=== PATIENT | female | born 1960 | race Caucasian/White ===

== ENCOUNTER → 2020-07-22 08:16 | Outpatient (CLI) | payer OTHER, SELFPAY ==
--- NOTE | ~2020-07-22 | MR_ITS ---
EXAMINATION: MR ankle RT wo con DATE: 07/22/2020 09:06 INDICATION: Right Achilles tendinitis. TECHNIQUE: Magnetic resonance imaging (MRI) of the right ankle was performed without intravenous cont rast. Sequences included sagittal, coronal, and axial proton-density weighted fast spin echo without and with fat saturation. COMPARISON: None. FINDINGS: Medial ankle ligaments: Prominent heterotopic ossification along the talar side of the deep deltoid ligament consistent with sequela of prior tear. Similar there is thickening of the anterior superficial deltoid ligament addit ional heterotopic ossification consistent with sequela chronic sprain. The spring ligament complex is normal. Lateral ankle ligaments: The anterior inferior tibiofibular ligaments is normal. Chronic partial tears of the attenuated anter ior talofibular ligament, the calcaneofibular ligament which is mildly thickened at its calcaneal ins ertion of the posterior talofibular and posterior inferior tibiofibular ligaments which are thickened with small amount of heterotopic ossification along the fibular side of the ligaments and cystic chip nges at the fibula underlying the footplates of the ligaments. Tendons: Moderate insertional tendinosis at the distal Achilles tendon discrete tear but with mild surrounding peritendinitis. Moderate tendinopathy and longitudinal split tearing of the peroneus brevis tendon c entered at the level of the retromalleolar groove and distal tip of the lateral malleolus. Mild peron eus longus tendinopathy with longitudinal split tear extending a short distance distal to the retroar eolar trochlear eminence. The tibialis anterior and extensor hallucis longus and extensor digitorum l ongus tendons are normal. The tibialis posterior, flexor digitorum longus and flexor hallucis longus tendons are normal. Plantar fascia: Small plantar calcaneal spur with mild thickening and mild increased signal of the proximal plantar a poneurosis consistent with mild chronic enthesopathy. No surrounding edema to suggest acute plantar f asciitis. Bones/other: Polyarticular osteoarthritis. This includes mild nonuniform joint space narrowing at the tibiotalar j oint, mild to moderate joint space narrowing at the subtalar joint with subarticular edema along the course of the talar articular surfaces at the anterior and posterior facets. Additional moderate oste oarthritis with subarticular edema at the second and third tarsal metatarsal joints with mild osteoar thritis at several of the remaining joints in the midfoot. No fracture or pathologic marrow replacing process. A couple small low signal intensity bone islands in the cuboid and anterior process of the calcaneus. Fluid: Physiologic amount fluid in the joint space. Small amount of fluid at the retrocalcaneal bursa consis tent with mild bursitis. Mild subcutaneous edema about the distal calf, ankle and over the dorsum of the forefoot. IMPRESSION: 1. Moderate distal Achilles tendinosis with associated mild peritendinitis and retrocalcaneal bursiti s. 2. Tendinopathy and longitudinal split tears of the peroneus brevis longus and peroneus brevis tendon s. 3. Scarring and heterotopic ossification of the stabilizing ligaments at the medial and lateral ankle consistent with sequela of chronic sprains. 4. 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 Reviewed, dictated and finalized at location A. OPAEDIC NURSE IMPRESSION: 1. Moderate distal Achilles tendinosis with associated mild peritendinitis and retrocalcaneal bursitis. 2. Tendinopathy and longitudinal split tears of the peroneus brevis longus and peroneus brevis tendons. 3. Scarring and heterotopic ossification of the stabilizing ligame
== END ==
PROVIDERS: PCP Family Medicine; Visit Provider Podiatrist Foot & Ankle Surgery
DX: M76.61 Achilles tendinitis, right leg (principal); M19.071 Primary osteoarthritis, right ankle and foot
CPT/HCPCS: 73721

== ENCOUNTER 2025-03-24 10:03 | Outpatient (CLI) | payer MEDICARE, SELFPAY ==
--- OUTSIDE RECORDS SUMMARY | 2025-03-24 10:14 | XMS_ITS | Clinical Summary ---
Author Organization [facility] Address [address] [place] [address] Care Team Providers Care Oil Program Compliance Specialist Name Role Phone Unavailable Primary Care Provider Unavailabl e Social History Tobacco Use Types Packs/Day Years Used Date Smoking Tobacco: Never Assessed Comments Unknown Sex and Gender Information Value Date Recorded Sex Assigned at Not on file Legal Sex Female 12:57 PM CDT Gender Identity Not on file Sexual Orientation Not on file Plan of Treatment Health Maintenance Due Date Last Done Comments Colorectal Cancer Screening Colonoscopy (10 Years) 1959 Hepatitis C 1977 DTaP, Tdap and Td Vaccines ( 1 - Tdap) 1978 Mammogram Screening 1999 Pneumococcal Vaccine: 50+ Ye ars (1 of 1 - PCV) 2009 Zoster Vaccines (1 of 2) 2009 COVID-19 Vaccine ( - 2023-2 5 season) 2024 Dexa Scan (General) 2024 PHQ-2 (Physician Beattie) 09/10/2024 RSV Immunization or 60+ Years (1 - 1-dose 75+ series) 2034 Meningococcal B Vaccine Aged Out No l onger eligible based on patient's age to complete this topic Meningococcal Vaccine Aged Out No trey chiara eligible based on patient's age to complete this topic RSV Immunizations Under 20 Months Aged Out No longer eligible based on patient's age to complete this topic Insurance [employer]
--- OUTSIDE RECORDS SUMMARY | 2025-03-24 10:14 | XMS_ITS | Clinical Summary ---
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
--- OUTSIDE RECORDS SUMMARY | 2025-03-24 10:14 | XMS_ITS | Referral Summary ---
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
--- OUTSIDE RECORDS SUMMARY | 2025-03-24 10:14 | XMS_ITS | Clinical Summary ---
Author Organization [facility] Address [address] [place] [address] Care Team Providers Care Electronic Lab Technician Name Role Phone Víctor Garcia MD Primary Care Provider Source Comments [facility],non-owned Affiliates and Associated Physician Practices is amultiple site organization consisting of ambulatory clinics and hospital sitesin [place], [place], [place] and [place]. This disclosure is being madepursuant to the Care Everywhere program and may not contain all information available regarding this patient. 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 Gender Identity Not on file Sexual Orientation Not on file Plan of Treatment Health Maintenance Due Date Last Done Comments BONE DENSITY TESTING 1959 COLOGUARD (AGES 45-75) - COL ON CA SCREENING 1959 COLON MONITORING 1959 COLONOSCOPY - COLON CA SCREENING 1959 CT COLONOGRAPHY - COLON CA SCREENING 1959 Colorectal Cancer Screening 1959 FIT - COLON CA SCREENING 1959 FLEX SIG - COLON CA SCREENING 1959 LIPID TESTING 1959 MAMMOGRAM 1959 HIV SCREENING 1974 HEPATITIS C SCREENING 08/08/1977 DTAP/TDAP/TD VACCINES (1 - Tdap) 1978 PNEUMOCOCCAL VACCINE 50+ (1 of 1 - PCV) 2009 ZOSTER VACCINE (1 of 2) 2009 COVID-19 VACCINE (1 - 2023-2 5 season) 2024 DEPRESSION SCREENING 09/10/2024 INFLUENZA VACCINE (#1) 2025 Respiratory Syncytial Virus (RSV) Vaccine Pt: or over 60 yrs (1 - 1-dose 75+ series) 2034 HEPATITIS B VACCINE Aged Out No longe r eligible based on patient's age to complete this topic HIB VACCINE Aged Out No longer eligi ble based on patient's age to complete this topic HPV VACCINE Aged Out No longer eligi ble based on patient's age to complete this topic MENINGOCOCCAL (Group B) VACC INE SHARED DECISION-MAKING Aged Out No longer eligibl e based on patient's age to complete this topic MENINGOCOCCAL GROUPS A/C/Y/W VACCINE Aged Out No longer eligible b ased on patient's age to complete this topic Care Teams Electronic Lab Technician Relationship Specialty Start Date End Date Víctor Garcia MD [address] [address] PCP - General 03/24/10
--- OUTSIDE RECORDS SUMMARY | 2025-03-24 10:14 | XMS_ITS | Data Portability ---
Author Organization [facility] [employer], Main Office Address [address] [place] [address] Assessment No assessment recorded. Plan of Treatment Reminders Order Date Submit Date Provider Last Modified By Organization Details Last Modified Time Details Appointments None recorded. Lab hemoglobin A1C, fingerstick 2024 025 [facility], [address] [place] [address], [address], 5 14:50:12 magnesium, serum or plasma 2023 024 [email or web address] (Lab), [address] [place], [address], 4 08:35:35 ferritin, serum or plasma 2023 024 [email or web address] (Lab), [address] [place], [address], 4 08:35:35 glycohemogl obin, total, blood 2023 024 [email or web address] (Lab), [address] [place], [address], 4 08:35:35 lipid panel, serum 2022 023 [facility] (Lab), [address] [place], [address], 3 19:31:01 CMP, serum or plasma 2022 023 [facility] (Lab), [address] [place], [address], 3 19:31:06 glycohemogl obin, total, blood 2022 023 [facility] (Lab), [address] [place], [address], 3 19:37:06 TSH, serum or plasma 2022 023 [facility] (Lab), [address] [place], [address], 3 19:59:17 Referral neurologist referral - Please call patient to schedule an appointment . Thank you. 2023 024 [email or web address] Balbir Cordero MD, [address], [place], [address], 4 09:14:43 Procedures None recorded. Surgeries None recorded. Imaging MAMMO, screening, digital, bilateral [address], [address] [place] [address] , [facility] [address], [place], [address], 5 16:07:57 DEXA, axial skeleton 2024 [address] [facility], [address] [place] [address] [address], [place], [address], 5 16:07:57 XR, hip, unilateral, 2 or 3 view [email or web address] [place] [address], [facility] [place] , [place], [address], 4 08:59:49 DEXA - *Please call pt to schedule* 2023 [email or web address] [place] [address] (Imaging), [address] [place] [address] [address], [place], [address], 4 08:56:49 US, doppler, venous - bilateral, upper and lower, looking for blockage *Please call pt to schedule* 2023 024 [email or web address] [address] [facility], [address], [place], [address], 4 08:56:50 US, doppler, arterial - looking for atheroscler osis, bilateral *Please call pt to schedule* 2023 024 [email or web address] 256 [facility], [address], [place], [address], 4 08:56:50 MAMMO, screening, bilateral 2022 023 [email or web address] 256 [facility], [address] [place] [address], [place], [address], 3 09:03:37 Medication Orders ropinirole 1 mg tablet 2024 025 [facility]arm[facility] #3259, [address] [place], [address], 5 14:14:18 ropinirole 0.25 mg tablet 2023 024 [facility]arm[facility] #3259, [address] [place], [address], 4 12:25:15 zolpidem 10 mg tablet 2023 024 [facility] #3259, [address] [place], [address], 4 12:16:14 ropinirole 0.25 mg tablet 2023 024 [facility]Pharmacy #3259, [address] [place], [address], 4 12:47:08 fluoxetine 20 mg capsule 2023 024 IVAN [facility]/Pharmacy #3259, [address] [place], [address], 4 12:40:16 terbinafine HCl 250 mg tablet 2022 023 [email or web address] [facility]/Pharmacy #3259, [address] [place], [address], 4 12:24:43 fluoxetine 40 mg capsule 2022 023 [email or web address] [facility]arm[facility] #3259, [address] [place], [address], 5 13:48:07 Patient TargetsNo targets recorded. Patient Instructions Encounter Date Encounter Id Patient Instructions Last Modified By Organization Details Last Modified Time 12/10/2023 [id number] wear compression stockings [email or web address] Not available 12/10/2023 14:18:53 07/16/2024 [id number] She said she rachel l consider going to ortho for her hip after the holidays . I encouraged her to get the x-ray of hip rohit , not to wait . [email or web address] Not available 08/10/2024 16:09:53 10/29/2024 [id number] dementia rating scale-2* IVAN Not available 10/29/2024 14:55:30 multi-dimensiona l health assessment questionnaire* IVAN Not available 10/29/2024 14:55:22 advance directiv es: care instructions [email or web address] Not available 10/29/2024 14:25:53 [place] Advance Directives [email or web address] Not available 10/29/2024 14:25:53 advance care planning: care instructions [email or web address] Not available 10/29/2024 14:25:53 care plan* IVAN Not available 10/29 14:55:13 Personalized Hea lth Plan and Screening Recommendations Advance Directives - Do you have one? Advance Directives - Do we have your advance directive on file in your health record? Primary Prevention/Interven tion (prevents or decreases the chance of common diseases from occurring) Smoking Risk: Alcohol Misuse Screening: Weight: Physical activity: Nutrition: Fall Risk (screened today): Vaccines Pneumococcal: Influenza: Chronic Disease Risks Stroke: Active diagnosis, Continue current treatment plan Heart Attack: Active diagnosis, Continue current treatment plan Clogging of the Arteries: Active diagnosis, Continue current treatment plan Diabetes: Active diagnosis, Continue current treatment plan Secondary Prevention/Interven tion (detects treatable diseases before they may cause symptoms, disability, or ) Breast Cancer Screening with mammogram: Cervical/Uterine/Ov vy Cancer Screening: Osteoporosis Screening: Date Screening Last Performed: Colon Cancer Screening: Date Screening Last Performed: Eye Disease Screening: Your next exam in: Dementia Risk: Depression Screening: Active diagnosis, Continue current treatment plan Not available 10/29/2024 13:34:10 buy otc Black Cohosh and soy tablets . google dose [email or web address] Not available 11/01/2024 11:31:37 Reason for Referral Neurologist Referral for Manuelito miller Please call patient to schedule an appointment. Thank you. Referring Physician: Mason Tejeda, Family Medicine, Encounter Date: 12/10/2023 Results Created Date Observation Date Name Description Value Unit Range Abnormal Flag Note LastModifiedBy Organization Detail LastModifiedTime 04/06/2004/06/2023 LIPID PANEL cholesterol 222 mg/dL 140-19 9 high NIH ADONIS NSUS RECOM MENDA TION FOR MARGARETH STERO L: ADULT CHILD LOW RISK: <200 <170 BORDE RLINE : <200- 239 ----- HIGH RISK: >240 >200 Not Available [facility] (Lab) [address] [place], [address], 04/06/2023 19:31:01 04/06/2004/06/2023 LIPID PANEL triglyceride s 101 mg/dL 0-150 NIH ADONIS NSUS REPOR T RECOM MENDA TION FOR TRIGL YCERI MICAELA: ADULT CHILD LOW RISK: <150 ----- BODER LINE: 150-1 99 ----- HIGH RISK: >200 ----- Not Available [facility] (Lab) [address] [place], [address], 04/06/2023 19:31:01 04/06/20 23 04/06/2023 LIPID PANEL HDL cholesterol 61 mg/dL 40- Not Available [facility] (Lab) [address] [place], [address], 04/06/2023 19:31:01 04/06/20 23 04/06/2023 LIPID PANEL LDL cholesterol, calculated 141 mg/dL 0-130 high NIH ADONIS NSUS REPOR T RECOM MENDA TIONS FOR LDL: ADULT CHILD LOW RISK <130 <110 (OPTI MAL LDL) <100 ----- BORDE RLINE : 130-1 59 ----- HIGH RISK: >160 >130 A TRIGL YCERI DE RESUL T >400 INVAL IDATE S THE CALCU LATIO N FOR LDL FRACT IONAT ION - THE LDL RESUL T WILL NOT BE REPOR MICHAEL. Not Available [facility] (Lab) [address] [place], [address], 04/06/2023 19:31:01 04/06/20 23 04/06/2023 COMP MET PANEL /LIVE R sodium 140 mmol/ L 137-14 5 Not Available [facility] (Lab) [address] [place], [address], 04/06/2023 19:31:06 04/06/2004/06/2023 COMP MET PANEL /LIVE R potassium 4.0 mmol/ L 3.5-5. 1 Not Available [facility] (Lab) [address] [place], [address], 04/06/2023 19:31:06 04/06/20 23 04/06/2023 COMP MET PANEL /LIVE R chloride 102 mmol/ L 98-107 Not Available [facility] (Lab) [address] [place], [address], 04/06/2023 19:31:06 04/06/20 23 04/06/2023 COMP MET PANEL /LIVE R carbon dioxide 29 mmol/ L 22-30 Not Available [facility] (Lab) [address] [place], [address], 04/06/2023 19:31:06 04/06/20 23 04/06/2023 COMP MET PANEL /LIVE R anion gap 13.0 mmol/ L 14-22 low Not Available [facility] (Lab) [address] [place], [address], 04/06/2023 19:31:06 04/06/20 23 04/06/2023 COMP MET PANEL /LIVE R glucose 115 mg/dL 70-99 high Not Available [facility] (Lab) [address] [place], [address], 04/06/2023 19:31:06 04/06/20 23 04/06/2023 COMP MET PANEL /LIVE R BUN 21 mg/dL 8-19 high Not Available [facility] (Lab) [address] [place], [address], 04/06/2023 19:31:06 04/06/20 23 04/06/2023 COMP MET PANEL /LIVE R creatinine 0.95 mg/dL 0.66-1 .25 Not Available [facility] (Lab) [address] [place], [address], 04/06/2023 19:31:06 04/06/20 23 04/06/2023 COMP MET PANEL /LIVE R GFR 59 Refer ence Range : Derry ge GFR Healt hy Adult : >60 mL/mi n/1.7 3 m2 Chron ic Kidne y Disea se: 15-60 mL/mi n/1.7 3 m2 Kidne y Failu re: <15/m L/min /1.73 m2 www.n iddk. nih.g ov The MDRD study equat ion has not been valid ated in child jessica <18 years of age; pregn ant women ; the elder ly >85 years of age; or in some racia l or ethni c subgr oups, such as Hispa nics. Outsi de the valid ated santana eters , estim ated GFR is less accur ate, requi ring clini veronica judgm ent on a case- by-ca se basis . Clini veronica inter preta tion for other races and ages must be made by the clini arianna. The MDRD study equat ion has not been valid ated for the evalu ation of serum creat inine relat ed to nutri lorne l statu s or medic ation usage . For perso ns <18 years of age, a pedia tric GFR calcu lator is avail able on the [facility] websi te: https ://ww w.kid ayesha.o rg/pr ofess ional s/kdo qi/gf r_cal culat or Not Available [facility] (Lab) [address] [place], [address], 04/06/2023 19:31:06 04/06/20 23 04/06/2023 COMP MET PANEL /LIVE R alkaline phosphatase 60 U/L 38-126 Not Available [facility] (Lab) [address] [place], [address], 04/06/2023 19:31:06 04/06/20 23 04/06/2023 COMP MET PANEL /LIVE R alanine aminotransfe rase 23 U/L 0-35 Not Available [facility] (Lab) [address] [place], [address], 04/06/2023 19:31:06 04/06/20 23 04/06/2023 COMP MET PANEL /LIVE R aspartate aminotransfe rase 26 U/L 15-37 Not Available [facility] (Lab) [address] [place], [address], 04/06/2023 19:31:06 04/06/20 23 04/06/2023 COMP MET PANEL /LIVE R bilirubin, total 0.30 mg/dL 0.20-1 .30 Not Available [facility] (Lab) [address] [facility] [place], [address], 04/06/2023 19:31:06 04/06/20 23 04/06/2023 COMP MET PANEL /LIVE R bilirubin, conjugated (direct) 0.00 mg/dL 0.00-0 .30 Not Available [facility] (Lab) [address] [place], [address], 04/06/2023 19:31:06 04/06/20 23 04/06/2023 COMP MET PANEL /LIVE R biliurubin,u ncong. (indirect) 0.20 mg/dL 0.00-1 .1 Not Available [facility] (Lab) [address] [place], [address], 04/06/2023 19:31:06 04/06/20 23 04/06/2023 COMP MET PANEL /LIVE R calcium 9.5 mg/dL 8.4-10 .2 Not Available [facility] (Lab) [address] [place], [address], 04/06/2023 19:31:06 04/06/20 23 04/06/2023 COMP MET PANEL /LIVE R total protein 7.2 g/dL 6.3-8. 2 Not Available [facility] (Lab) [address] [place], [address], 04/06/2023 19:31:06 04/06/20 23 04/06/2023 COMP MET PANEL /LIVE R albumin 4.2 g/dL 3.0-4. 4 Not Available [facility] (Lab) [address] [place], [address], 04/06/2023 19:31:06 04/06/20 23 04/06/2023 COMP MET PANEL /LIVE R globulin 3.0 g/dL 2.6-4. 2 Not Available [facility] (Lab) [address] [place], [address], 04/06/2023 19:31:06 04/06/20 23 04/06/2023 COMP MET PANEL /LIVE R A/G ratio 1.4 ratio 1.0-2. 0 Not Available [facility] (Lab) [address] [place], [address], 04/06/2023 19:31:06 04/06/20 23 04/06/2023 HEMOG LOBIN A1C HA1C 6.2 % 4.0-6. 0 high Diabe devon Chance david Crite jason: <5.7% Consi stent with absen ce of diabe devon 5.7-6 .4% Consi stent with incre ased risk for diabe devon (pred iabet es) >OR=6 .5% Consi stent with diabe devon REFER ENCE: Diabe devon Care 2016, 39(Lal ppl.1 ):s13 -s22 Not Available [facility] (Lab) [address] [place], [address], 04/06/2023 19:37:06 04/06/20 23 04/06/2023 TSH W/REF CELSO FT4 TSH with reflex free T4 0.939 uIU/m L 0.465- 4.680 Not Available [facility] (Lab) [address] [place], [address], 04/06/2023 19:59:17 10/29/19 25 10/29/2024 hemog lobin A1C, finge rstic k HgbA1C 6.4 Not Available [facility]_[address], [address], 10/29/2024 14:09:33 06/11/20 23 MAMMO , chance david, digit al, bilat eral [facility] [address] [facility] [place] [id number] Patien t Name: MIGUEL CORBETT Sameer ion #: [id number] Sex: F : 1959 6 Dictat ed By: Leonor Randall Attend ing Physic bert: ELKHAT IB, RUNDA Orderi ng Physic bert: ELKHAT IB, RUNDA Exam Date: 2022 09:56 AM Exam Name: MG VERA L NILTON BILAT SCREEN Admitt ing Diagno sis(es ): CLINIC AL HISTOR Y: Screen ing COMPAR ESTEBAN STUDY: None TECHNI QUE: Using a full field digita l 2D mammog patti unit CC and MLO views of both breast s are perfor med. FINDIN GS: BREAST COMPOS ITION: There are scatte red areas of fibrog landul ar densit y in the bilate ral breast s. No suspic ious masses , stephanie ectura l distor tion, asymme tries or suspic ious calcif icatio ns in both breast s. IMPRES MACI: No eviden ce of malign christina. Recomm end annual mammog paige. BIRADS : 1 - Negati ve Electr onical ly Signed by: Leonor Randall at 2022 10:59: 05 AM Page 1 [facility] (Imaging) [address] [place], [address], 06/11/2023 13:55:53 06/11/20 23 06/11/2023 MAMMO , scree joann, bilat eral No observ ation record ed. [email or web address] [facility] [address] [place], [address], 06/11/2023 13:55:53 02/27/20 24 02/07/2024 US, doppl er, arter ial No observ ation record ed. [email or web address] [facility] [address], [place], [address], 02/28/2024 08:27:51 Result Notes Documentation Provider Name and Address Organization Details Recorded Time Mammo, Screening, Digital, Bilateral : [facility] [address] [place] [address] Patient Name: MIGUEL CORBETT [facility]: F [facility] 1960 [id number] Dictated By: Leonor Randall Attending Physician: YURY RESTREPO Ordering Physician: YURY RESTREPO Exam Date: 06/11/2023 09:56 AM Exam Name: DIGITAL NILTON BILAT SCREEN Admitting Diagnosis(es): CLINICAL HISTORY: Screening COMPARISON STUDY: None TECHNIQUE: Using a full field digital 2D mammography unit CC and MLO views of both breasts are performed. FINDINGS: BREAST COMPOSITION: There are scattered areas of fibroglandular density in the bilateral breasts. No suspicious masses, architectural distortion, asymmetries or suspicious calcifications in both breasts. IMPRESSION: No evidence of malignancy. Recommend annual mammogram. BIRADS: 1 - Negative Page 1 Suze Sanders RN [facility], [place] - [facility] [employer] 06/11/2023 13:55:53 Problems Name Problem SNOMED Code Status Onset Date Resolution Date Notes Provider Name and Address Organization Details Recorded Time Pain of bilateral hands 904794668582 06950 Active 2021 Not Available [employer] 3 23:49:00 Anti-nucle ar factor detected 991031618 Active 2021 Not Available [facility] 3 23:49:00 Fibromyalg ia 930365676 Active 2020 Not Available [employer] 3 23:49:01 Glaucoma 94469389 Active 2020 Not Available [facility] 3 23:49:01 Depressive disorder 97023313 Active 2020 Not Available [facility] 3 23:49:01 Pain of multiple joints 81567480 Active 2021 Not Available [facility] 3 23:49:01 Hypertensi ve disorder 83966354 Active 2020 Not Available [facility] 3 23:49:01 Percutaneo us division of Achilles tendon Active 2020 Not Available [facility] 3 23:49:01 Diabetes mellitus 83675098 Active 2020 Not Available [facility] 3 23:49:01 Thyroiditi s 80160805 Active 2020 Not Available [facility] 3 23:49:01 Hypothyroi dism 75312875 Active 2022 Not Available [facility] 3 23:49:01 Type 2 diabetes mellitus without complicati on 286886882 Active 2022 Not Available [facility] 3 23:49:01 Onychomyco sis of toenails 301787338 Active 2022 Not Available [facility] 3 23:49:01 Dizzy spells 453001677 Active 2023 VANDA Estevez [address], [place], [address] , [employer] [facility] [employer] 4 14:22:41 Screening for osteoporos is Active 2023 VANDA Estevez [address], [address], [place], [address] , [employer] 4 14:26:42 Aphthous ulcer of mouth 302142338 Active 2023 tongue VANDA Estevez [address], [place], [address] , [employer] [facility] [employer] 4 21:19:49 Restless legs 46334196 Active 2023 VANDA Estevez [address], [place], [address] , [employer] 4 12:45:53 Adult health examinatio n Active 2023 VANDA Estevez [address], [place], [address] , [employer] [facility] [employer] 4 11:29:53 Hyperlipid emia 14544141 Active 2023 Suze Sanders RN null, [facility] [employer] [facility] 4 16:12:03 Fatigue 58038617 Active 2023 NICOLE Davis, [place] [email or web address] [facility] [employer] 4 16:13:57 Pain of left hip joint 624253376396 100 Active 2023 VANDA Estevez [address], [address], [place], [address] , [employer] 4 12:21:11 Wheezing 79252270 Active 2024 VANDA Estevez [address], [address], [place], [address] , [employer] 5 10:15:54 Screening mammograph y Active 2024 VANDA Estevez [address], [address], [place], [address] , [employer] 5 14:05:45 Osteoporos is 89077788 Active 2024 VANDA Estevez [address], [address], [place], [address] , [employer] 5 14:21:11 Pain of right knee region 162073830918 105 Active 2024 NICOLE Davis, [employer] 5 15:31:37 Problem Notes None recorded. Procedures Surgical History Date Name Laterality Status Provider Name and Address Organization Details Recorded Time 10/29/19 Medicare Wellness CPT Code, Initial completed Suze Sanders RN [facility] [employer] 10/29/2024 13:34:10 Cataract Surgery completed Not Available [facility] 11/08/2022 00:41:25 Cholecystectomy completed Not Available [facility] 11/08/2022 00:41:25 Tonsillectomy completed Not Available [facility] 11/08/2022 00:41:25 Imaging Results None recorded. Procedure Notes None recorded. Medical Equipment None Reported. Allergies Allergen ID Allergen Name Allergen Category Reaction Reaction Severity Criticality Documentation Date Start Date Code Code System Note Provider Name and Address Organization Details Recorded Time 05375 Cymbalta medicatio n other Not available low 07/16/2024 44643 4 RxNorm NICOLE Crawford, [place] [email or web address] [facility] [employer] [facility] 12:04:16 Medications Name Sig Start Date Stop Date Status Note LastModified by Organization Details LastModified Time Prescript ion - Prior Authoriza tion Request active Not Available Not Available Not Available fluoxetin e 40 mg capsule TAKE 1 CAPSULE BY MOUTH EVERY DAY 10/29 completed Not Available Not Available Not Available latanopro st 0.005 % eye drops USE 1 DROP IN EACH EYE AT BEDTIME active Not Available Not Available No t Available ropinirol e 1 mg tablet TAKE 1 TABLET BY MOUTH EVERY DAY AT BEDTIME FOR 30 DAYS active Not Available Not Available No t Available atorvasta tin 10 mg tablet TAKE 1 TABLET BY MOUTH EVERY DAY 03/21 completed weak legs Not Available Not Available Not Available prednison e 20 mg tablet Take 2 tabs PO twice daily for 2 days; 1 tab PO twice daily for 5 days; 1/2 tab PO twice daily for 2 days; 1/2 tab PO once for 1 day. TAKE 2ND DOSE EVERYDAY AT NOON-10 DAY COURSE 10/29 completed Not Available Not Available Not Available tramadol 50 mg tablet TAKE 1-2 TABLET BY MOUTH EVERY 6 HOURS NEEDED FOR PAIN. active Not Available Not Available No t Available levothyro xine 25 mcg tablet TAKE 1 TABLET BY MOUTH DAILY ON EMPTY STOMACH, WAIT 30-60 MINS BEFORE EATING OR DRINKING active Not Available Not Available No t Available oxycodone -acetamin ophen 5 mg-325 mg tablet TAKE 1 TABLET BY MOUTH EVERY 4 TO 6 HOURS NEEDED FOR PAIN 04/04 completed Not Available Not Available Not Available terbinafi ne HCl 250 mg tablet TAKE 1 TABLET BY MOUTH EVERY DAY 04/07 completed Not Available Not Available Not Available amitripty line 25 mg tablet TAKE 1 TABLET BY MOUTH EVERYDAY AT BEDTIME 04/03 completed Not Available Not Available Not Available ropinirol e 0.25 mg tablet TAKE 2 TABLETS BY MOUTH EVERY DAY AT BEDTIME FOR 30 DAYS active Not Available Not Available No t Available Kenalog 10 mg/mL suspensio n for injection In office injectio n administ ered by the provider 11/01 completed ND: [id number] 4-20 Not Available Not Available Not Available cephalexi n 500 mg capsule TAKE 1 CAPSULE BY MOUTH THREE TIMES A DAY 11/11 completed Not Available Not Available Not Available ferrous sulfate 325 mg (65 mg iron) tablet TAKE 1 TABLET BY MOUTH IN THE MORNING 07/16 completed Not Available Not Available Not Available fluoxetin e 20 mg tablet TAKE 2 TABLETS BY MOUTH ONCE DAILY IN THE MORNING 11/01 completed Not Available Not Available Not Available diclofena c sodium 75 mg tablet,de layed release TAKE 1 TABLET BY MOUTH TWICE DAILY NEEDED FOR PAIN 11/11 completed Not Available Not Available Not Available lisinopri l 10 mg-hydroc hlorothia zide 12.5 mg tablet TAKE 1 TABLET BY MOUTH EVERY DAY active Not Available Not Available No t Available zolpidem 10 mg tablet TAKE 1 TABLET BY MOUTH EVERYDAY AT BEDTIME active Not Available Not Available No t Available albuterol sulfate HFA 90 mcg/actua tion aerosol inhaler INHALE 2 PUFFS EVERY 8 HOURS BY INHALATI ON ROUTE NEEDED FOR 10 DAYS. active Not Available Not Available No t Available timolol maleate 0.5 % eye drops INSTILL 1 DROP INTO EACH EYE TWICE DAILY DIRECTED active Not Available Not Available No t Available fluoxetin e 20 mg capsule TAKE 1 CAPSULE BY MOUTH EVERY DAY active Not Available Not Available No t Available gentamici n 0.1 % topical ointment APPLY ON THE SKIN DAILY TO THE AFFECTED TOE 11/11 completed Not Available Not Available Not Available dorzolami de 2 % eye drops INSTILL ONE DROP INTO BOTH EYES TWICE A DAAY active Not Available Not Available No t Available enoxapari n 40 mg/0.4 mL subcutane ous syringe 04/04 completed Not Available Not Available Not Available ezetimibe 10 mg tablet TAKE 1 TABLET BY MOUTH EVERY DAY IN THE MORNING active Not Available Not Available No t Available pregabali n 25 mg capsule TAKE 1 CAPSULE BY MOUTH EVERY MORNING 04/07 completed Not Available Not Available Not Available pregabali n 50 mg capsule ONE TABLET BY MOUTH TWICE A DAY 04/07 completed Not Available Not Available Not Available pregabali n 75 mg capsule TAKE 1 CAPSULE BY MOUTH TWICE A DAY 11/01 completed Not Available Not Available Not Available Januvia 50 mg tablet Take 1 tablet every day by oral route in the morning for 90 days. active has been using januvia 100mg samples Not Available Not Available Not Available Tradjenta 5 mg tablet active Not Available Not Available Not Available ropivacai ne (PF) 5 mg/mL (0.5 %) injection solution Take 1 mg by injectio n route. 11/01 completed Not Available Not Available Not Available Rhopressa 0.02 % eye drops INSTILL ONE DROP IN EACH EYE EVERY NIGHT 04/07 completed Not Available Not Available Not Available Quviviq 50 mg tablet TAKE 1 TABLET BY MOUTH EVERYDAY AT BEDTIME 11/01 completed Not Available Not Available Not Available Zituvio 50 mg tablet 1 tab po daily 10/29 completed Not Available Not Available Not Available Vitals Date Recorded Body height Body mass index (BMI) Body weight Body temperature Oxygen saturation Oxygen saturation in Arterial blood by Pulse oximetry Heart rate Systolic And Diastolic Provider Name and Address Organization Details Last Updated DateTime 5 165.1 cm 42 kg/m2 320276 g 97.2 [degF] 97 % 97 % 55 /min 122/92 mm[Hg] Suze Sanders RN [facility] [employer] [facility] 5 13:47:37 Date Recorded Body height Body mass index (BMI) Body weight Body temperature Heart rate Oxygen saturation Oxygen saturation in Arterial blood by Pulse oximetry Respiratory rate Systolic And Diastolic Provider Name and Address Organization Details Last Updated DateTime 4 165.1 cm 43.4 kg/m2 626458. 61 g 97.2 [degF] 64 /min 97 % 97 % 16 /min 126/84 mm[Hg] Marjan Cook RN [facility] [employer] [facility] 4 14:09:03 Date Recorded Body height Body mass index (BMI) Body weight Body temperature Heart rate Oxygen saturation Oxygen saturation in Arterial blood by Pulse oximetry Systolic And Diastolic Provider Name and Address Organization Details Last Updated DateTime 3 165.1 cm 44.4 kg/m2 383514. 16 g 96.6 [degF] 98 /min 98 % 98 % 138/100 mm[Hg] SHAR Mills [facility] [employer] [facility] 3 11:14:33 Date Recorded Body height Body mass index (BMI) Body weight Body temperature Heart rate Respiratory rate Oxygen saturation Oxygen saturation in Arterial blood by Pulse oximetry Systolic And Diastolic Provider Name and Address Organization Details Last Updated DateTime 4 165.1 cm 44.1 kg/m2 375343. 98 g 96.9 [degF] 59 /min 16 /min 97 % 97 % 146/90 mm[Hg] Regine Yepez RN [facility] [employer] [facility] 4 12:29:00 Date Recorded Body height Body mass index (BMI) Body weight Body temperature Heart rate Oxygen saturation Oxygen saturation in Arterial blood by Pulse oximetry Systolic And Diastolic Provider Name and Address Organization Details Last Updated DateTime 4 165.1 cm 44.4 kg/m2 724944. 16 g 97.5 [degF] 60 /min 97 % 97 % 134/80 mm[Hg] Regine Yepez RN [facility] [employer] [facility] 4 12:09:49 Social History Question Answer Notes LastModified by [employer] Details LastModified Time Tobacco Smoking Status Former Smoker Not Available [facility] 11/08/2022 00:41:01 In The 14 Days Before Symptom Onset, Have You Had Close Contact With A Laboratory-confirm ed COVID-19 While That Case Was Ill? No [id number] Information not available 11/08/2022 In The 14 Days Before Symptom Onset, Have You Had Close Contact With A Person Who Is Under Investigation For COVID-19 While That Person Was Ill? No [id number] Information not available 11/08/2022 What Was The Date Of Your Most Recent Tobacco Screening? 04/04/2022 [id number] Information not available 11/08/2022 At What Age Did You Start Smoking Tobacco? 18 [id number] Information not available 11/08/2022 How Much Tobacco Do You Smoke? 1 PPD [id number] Information not available 11/08/2022 How Many Years Have You Smoked Tobacco? 12 Quite 1990 [id number] Information not available 11/08/2022 Sex: Unknown Functional Status Question Answer Note LastModified by [employer] Details LastModified Time What is your level of alcohol consumption? Occasional [id number] Information not available 11/08/2022 Mental Status None recorded. Family History Relationship Description Onset Age of this Age Resolved Age Notes LastModified by Organization Details LastModified Time Father Diabetes mellitus [id number] Not available 11/08/2022 00:41:30 Father Hypertensive disorder MIGRATION.378 [id number] Not available 11/08/2022 00:41:30 Father Family history of stroke MIGRATION.801 [id number] Not available 11/08/2022 00:41:30 Paternal Grandfather Diabetes mellitus MIGRATION.900 [id number] Not available 11/08/2022 00:41:31 Paternal Grandfather Family history of malignant neoplasm [id number].772 [id number] Not available 11/08/2022 00:41:31 Mother Polycystic ovary syndrome MIGRATION.609 [id number] Not available 11/08/2022 00:41:31 Mother Glaucoma MIGRATION.976 [id number] Not available 11/08/2022 00:41:31 Mother Kidney disease MIGRATION.800 [id number] Not available 11/08/2022 00:41:31 Maternal Grandmother Glaucoma MIGRATION.277 [id number] Not available 11/08/2022 00:41:31 Paternal Aunt Family history of malignant neoplasm MIGRATION.193 [id number] Not available 11/08/2022 00:41:31 Paternal Uncle Family history of malignant neoplasm MIGRATION.474 [id number] Not available 11/08/2022 00:41:31 Sister Bipolar disorder MIGRATION.433 [id number] Not available 11/08/2022 00:41:31 Medical History Condition Response BLINDNESS N RHEUMATIC FEVER N KIDNEY STONES N BLADDER PROBLEMS N OTHER # 1 N POLIO N LUNG DISEASE/DISORDER N RADIATION / CHEMOTHERAPY N COPD N Other # 2 N BLOOD DISEASES N SURGERY N EAR OR HEARING PROBLEMS N MUMPS N BOWEL PROBLEMS N FEMALE PROBLEMS / INFECTIONS Y DEPRESSION (INCLUDING POST ) Y STROKE/TIA N THYROID DISEASE N ULCERS N BENIGN PROSTATIC HYPERPLASIA N MEASLES N CERVICALGIA N TB SKIN TEST N MYOCARDIAL INFARCTION N PARAPELGIA N OBESITY N GERD/NAUSEA Y ANEURYSM N URINARY/BLADDER/KIDNEY PROBLEMS N INPATIENT PSYCH CARE N CORONARY ARTERY DISEASE (CAD) N MENIERE'S DISEASE N ADDICTION CONCERNS N ENDOMETRIOSIS N USE OF BLOOD THINNERS N SKIN PROBLEMS Y EMPHYSEMA N GASTROINTESTINAL DISORDER N MUSCLE,JOINT OR BONE PROBLEMS N GASTROINTESTINAL BLEEDING N BLOOD CLOTS N ASTHMA N CATARACTS Y USE OF NSAIDS Y ERECTILE DYSFUNCTION N GI PROBLEMS N CHF N Low Testosterone N NEUROPATHY N INFERTILITY N AIDS/HIV N FRACTURES N VISION/EYE PROBLEMS N LIVER DISEASE N MALE HYPOGONADISM N HYPERTENSION Y ANXIETY DISORDER Y BLOOD TRANSFUSION N ANEMIA/BLOOD DISORDER N CHRONIC EAR INFECTIONS N BRONCHITIS N TUBERCULOSIS N GLAUCOMA Y DIVERTICULITIS N CHICKENPOX N SLEEP APNEA N ALLERGIES/HAYFEVER Y INFECTIOUS DISEASE N HEART ARRHYTHMIA N PROSTATE N INSOMNIA Y HIGH CHOLESTEROL / HYPERLIPIDEMIA Y HYPERTHYROIDISM N EYE PROBLEMS Y EATING DISORDER N NEUROLOGICAL PROBLEMS N EDEMA N CHRONIC PAIN SYNDROME N HYPOTHYROIDISM N CONSTIPATION N CAROTID BLOCKAGE N BACK / NECK PROBLEMS Y HAVE YOU BEEN HOSPITALIZED OR SEEN IN [facility] IN THE PAST YEAR ? N ATHEROSCLEROSIS N BREAST PROBLEMS N DIALYSIS N ECZEMA Y FIBROMYALGIA Y OSTEOPOROSIS N ARTHRITIS Y NO SIGNIFICANT PAST MEDICAL HISTORY N APPENDICITIS N DIABETES, TYPE Y BAD TEETH N HEARTBURN / REFLUX Y ADD/ADHD N AUTISM SPECTRUM DISORDER (ASD) N HEPATITIS / LIVER DISEASE N PULMONARY DISEASE N GOUT N SLEEP DISORDER N ALZHEIMER'S DISEASE N PAIN N HERPES N DEMENTIA N HEADACHES/MIGRAINES N SEIZURES/EPILEPSY N VASCULAR DISEASE N PACEMAKER N DIZZINESS N HEART DISEASE/HEART PROBLEMS N KIDNEY DISEASE N DEVELOPMENTAL OR BEHAVIORAL DISORDERS N MULTIPLE SCLEROSIS N SCARLET FEVER N MENTAL DISORDER/ILLNESS N CARDIAC ARRHYTHMIA N CANCER: SPECIFY N ANESTHESIA COMPLICATIONS N PNEUMONIA N ATRIAL FIBRILLATION N PULMONARY EMBOLISM N AUTOIMMUNE DISEASE N Gynecological HistoryNo gynecological history recorded. Obstetrics History GPAL:G 0 P 0 0 0 0 Past Encounters Encounter ID Performer Location Encounter Start Date Encounter Closed Date Diagnosis/Indication Diagnosis SNOMED-CT Code Diagnosis ICD10 Code Diagnosis Note [id number] Yury Plaza MD [facility], [facility] [address] [place] [address] 11/11/2020 00:00:00 11/11/2020 20:16:49 [id number] Yury Plaza MD [facility] [facility], [facility] [place] [address] 02/22/2021 00:00:00 02/22/2021 21:11:21 [id number] Yury Plaza MD [facility] [place] [address] 05/25/2021 00:00:00 05/25/2021 20:57:50 [id number] Yury Plaza MD [facility] [place] [facility], [facility] [address] [place] [address] 03/21/2022 00:00:00 03/21/2022 21:22:36 [id number] Yury Plaza MD [facility] [place] [address] [place] [address] y [place] [address] 03/27/2022 00:00:00 03/27/2022 19:04:29 [id number] Ric Ríos MD [facility] [address] [place] [address] 04/04/2022 00:00:00 04/04/2022 11:28:01 [id number] Yury Plaza MD [facility] [place] [address] [place] [address] [place] [address] 04/07/2022 00:00:00 04/07/2022 12:18:03 [id number] Yury Plaza MD [facility] [place] [address] [place] [address] [place] [address] 07/07/2022 00:00:00 07/08/2022 11:59:42 [id number] Yury Plaza MD [facility] [place] [address] [place] [address] [place] [address] 11/01/2022 00:00:00 11/01/2022 13:30:35 [id number] Yury Plaza MD [facility] [place] [address] [place] [address] [place] [address] 04/06/2023 10:53:12 04/06/2023 11:42:39 Adult health examination 239792850 Z00.00 Hyperlipid emia screening 921328114 Z13.220 Hypothyroidism 60030557 E03.9 Screening for malignant neoplasm of breast 859161571 Z12.39 Type 2 allan betes mellitus without complication 623164790 E11.9 Depressive disorder 3548 9007 F32.A Chronic low back pain 27 0030494 M54.50 Onychomyco sis of toenails 696114169 B35.1 [id number] Yury Plaza MD [place] [address] [address] [place] [address] 12/10/2023 14:01:36 12/10/2023 15:23:09 Type 2 diabetes mellitus without complication 263844862 E11.9 Hypothyroidism 52781818 E03.9 Hypertensive disorder 38 788643 I10 Dizzy spells 931448422 R 42 Screening for osteoporosis 539568983 Z13.820 Depressive disorder 3548 9007 F32.A Fibromyalgia 776028676 M 79.7 Glaucoma 49637806 H40.9 Aphthous u lcer of mouth 750721427 K12.0 [id number] Augusto Solano MD [address] y [place] [address] 04/07/2024 11:56:17 04/07/2024 12:52:39 Depressive disorder 29442021 F32.A Type 2 allan betes mellitus without complication 525788507 E11.9 Restless legs 74855270 G 25.81 Adult heal th examination 608729642 Z00.00 Anti-nucle ar factor detected 324370345 R76.8 Fibromyalgia 430175592 M 79.7 Glaucoma 44053096 H40.9 Hypertensive disorder 38 748694 I10 Hypothyroidism 39701855 E03.9 Pain of mu ltiple joints 83462869 M25.50 Pain of bi lateral hands 7139055852 0661970 M79.641 M79.886 [id number] Augusto Solano MD [place] [address] [address] [place] [address] 07/16/2024 11:56:44 07/16/2024 12:32:04 Persistent insomnia 117178891 G47.09 Pain of le ft hip joint 4575669730 29605 M25.552 Restless legs 82486333 G 25.81 Depressive disorder 3548 9007 F32.A Fatigue 28590157 R53.83 Fibromyalgia 088289851 M 79.7 Glaucoma 26455859 H40.9 Hyperlipidemia 34794267 E78.5 Hypertensive disorder 38 000379 I10 Hypothyroidism 22110910 E03.9 Pain of mu ltiple joints 17473710 M25.50 Onychomyco sis of toenails 451386545 B35.1 Type 2 allan betes mellitus without complication 962547737 E11.9 a1c was 6.4 in june 2024 [id number] Augusto Solano MD [facility] [address] [address] 10/29/2024 13:26:21 10/29/2024 14:35:37 Adult health examination 161340117 Z00.00 Screening for disorder 417466818 Z13.9 Screening mammography 24 362652 Z12.31 Type 2 allan betes mellitus without complication 381319184 E11.9 a1c was 6.4 in june 2024 Restless legs 16123473 G 25.81 Osteoporosis 76724360 M8 1.0 Health Concerns Section Related Observation LastModified by Organization Detai ls LastModified Time None Recorded Concern Status LastModified by Organization Details LastModified Time None Recorded Advance Directives Directive None Recorded Payers Insurance Date Sequence Insurance Name Policy Number Policy Garcia Covered Member ID Garcia Member ID Guarantor Name 10/29/2024 1 [place] Miguel Corbett [id number] Miguel Corbett 10/29/2024 1 [employer] (POS II) [id number] Miguel Corbett [id number] Miguel Corbett Notes Date Note Type Note Provider Name and Address Organization Details Recorded Time 04/06/2023 text/html Here today for annual physical. Is due for BW. Needs a mammogram. Did cologuard last year and was negative.Has toes that are doing weird things. Thinks has fungus of toenails. Wants something for this.Last week had stomach cramps and BMs and it is green BM in color.Pt started feeling depressed and started fluoxetine she had some at home. She is feeling better.She is needing A1C check. Yury Plaza MD [address] [place] [address], [facility] [address], [place], [address], [facility] [employer] 04/07/2023 02:19:36 12/10/2023 text/html sweats all the time VANDA Estevez [address], [address], [place], [address], [employer] 12/18/2023 21:20:25 04/07/2024 text/html willing to go down on number of tabs of tramadol , but may need a refill this time 3 days early, recent fall VANDA Estevez [address], [address], [place], [address], [employer] 04/09/2024 11:31:46 07/16/2024 text/html no changes , still limping , she wants to wait till after the holidays to do any testing or referrals. VANDA Estevez [address], [address], [place], [address], [employer] 08/10/2024 16:10:02 10/29/2024 text/html see chief complaint . does not want to get blood drawn for mmr titer. VANDA Estevez [address], [address], [place], [address], [employer] 11/01/2024 11:31:57 OBGyn Episode No OBEpisode recorded.
[2025-03-24 15:03] LABS: Hematocrit 39.5 % (37.0-47.0); Hemoglobin 12.2 g/dL (12.0-15.0); Mean Corpuscular HGB Conc 30.9 g/dl (32-36); Mean Corpuscular Hemoglobin 29.5 pg (26-34); Mean Corpuscular Volume 95.6 fl (80-100); Platelet Count Result 297 k/mm3 (150-375); Red Blood Count 4.13 M/mm3 (4.2-5.4); White Blood Count 10.0 K/mm3 (4.5-10.0)
[2025-03-24 15:07] LABS: Alanine Aminotransferase 23 U/L (6-35); Albumin Level 4.1 g/dL (3.5-5.1); Alkaline Phosphatase 56 U/L (38-126); Anion Gap 7 mmol/L (4-12); Aspartate Amino Transferase 47 U/L (14-36); Bilirubin,Total 0.4 mg/dL (0.2-1.3); Blood Urea Nitrogen 19 mg/dL (7-17); Calcium 9.7 mg/dL (8.4-10.2); Carbon Dioxide 26 mmol/L (22-30); Chloride 107 mmol/L (98-107); Cholesterol 186 mg/dL (0-200); Estimated Glomerular Filt Rate > 60; Glucose 131 mg/dL (65-110); HDL Direct 51 mg/dL; Potassium 4.0 mmol/L (3.4-5.0); Sodium 140 mmol/L (137-145); Total Protein 7.1 g/dL (6.3-8.2); Triglycerides 126 mg/dL (<150)
[2025-03-24 15:18] LABS: Free T4 Free Thyroxine 1.09 ng/dL (0.78-2.19)
[2025-03-24 15:22] LABS: Hemoglobin A1C 6.4 % (<5.7)
[2025-03-24 15:42] LABS: Thyroid Stimulating Hormone 2.400 uIU/mL (0.465-4.680)
== END 2025-03-24 10:04 | disposition home or self-care (01) ==
LOC: ANHGOSHLAB 10:04
PROVIDERS: PCP Family Medicine; Visit Provider Family Medicine
DX: E03.9 Hypothyroidism, unspecified (principal); E78.2 Mixed hyperlipidemia; R73.03 Prediabetes; R94.6 Abnormal results of thyroid function studies; E66.01 Morbid (severe) obesity due to excess calories; Z68.41 Body mass index [BMI] 40.0-44.9, adult; Z79.899 Other long term (current) drug therapy
CPT/HCPCS: 36415; 80053; 80061; 83036; 84439; 84443; 85027

== ENCOUNTER 2025-07-16 10:03 | Outpatient (CLI) | payer MEDICARE, SELFPAY ==
[2025-07-16 13:00] LABS: Hematocrit 38.8 % (37.0-47.0); Hemoglobin 12.0 g/dL (12.0-15.0); Mean Corpuscular HGB Conc 30.9 g/dl (32-36); Mean Corpuscular Hemoglobin 29.1 pg (26-34); Mean Corpuscular Volume 94.2 fl (80-100); Platelet Count Result 308 k/mm3 (150-375); Red Blood Count 4.12 M/mm3 (4.2-5.4); White Blood Count 7.8 K/mm3 (4.5-10.0)
[2025-07-16 13:14] LABS: Alanine Aminotransferase 18 U/L (6-35); Albumin Level 4.1 g/dL (3.5-5.1); Alkaline Phosphatase 63 U/L (38-126); Anion Gap 6 mmol/L (4-12); Aspartate Amino Transferase 50 U/L (14-36); Bilirubin,Total 0.5 mg/dL (0.2-1.3); Blood Urea Nitrogen 22 mg/dL (7-17); Calcium 9.1 mg/dL (8.4-10.2); Carbon Dioxide 27 mmol/L (22-30); Chloride 104 mmol/L (98-107); Cholesterol 188 mg/dL (0-200); Estimated Glomerular Filt Rate > 60; Glucose 127 mg/dL (65-110); HDL Direct 52 mg/dL; Potassium 4.2 mmol/L (3.4-5.0); Sodium 137 mmol/L (137-145); Total Protein 6.9 g/dL (6.3-8.2); Triglycerides 80 mg/dL (<150)
[2025-07-16 13:39] LABS: Free T4 Free Thyroxine 1.07 ng/dL (0.78-2.19)
[2025-07-16 13:46] LABS: Thyroid Stimulating Hormone 1.280 uIU/mL (0.465-4.680)
[2025-07-16 14:11] LABS: Hemoglobin A1C 6.5 % (<5.7)
--- OUTSIDE RECORDS SUMMARY | 2025-07-16 18:23 | XMS_ITS | Data Portability ---
Author Organization [facility], Main Office Address [address] [place] [address] Assessment No assessment recorded. Plan of Treatment Reminders Order Date Submit Date Provider Last Modified By Organization Details Last Modified Time Details Appointments None recorded. Lab hemoglobin A1C, fingerstick 2024 025 [facility], [address] [place] [address], [address], 5 14:50:12 magnesium, serum or plasma 2023 024 [email or web address] (Lab), [address] [place], [address], 4 08:35:35 ferritin, serum or plasma 2023 024 [facility] (Lab), [address] [place], [address], 4 08:35:35 glycohemogl obin, total, blood 2023 024 [facility] (Lab), [address] [place], [address], 4 08:35:35 lipid panel, serum [address] [facility] (Lab), [address] [place], [address], 3 19:31:01 CMP, serum or plasma [address] [facility] (Lab), [address] [place], [address], 3 19:31:06 glycohemogl obin, total, blood [address] [facility] (Lab), [address] [place], [address], 3 19:37:06 TSH, serum or plasma [address] [facility] (Lab), [address] [place], [address], 3 19:59:17 Referral neurologist referral - Please call patient to schedule an appointment . Thank you. 2023 024 [email or web address] Balbir Cordero MD, [address], [place], [address], 4 09:14:43 Procedures None recorded. Surgeries None recorded. Imaging MAMMO, screening, digital, bilateral [address], [address] [place] [address] , [facility] [address], [place], [address], 5 16:07:57 DEXA, axial skeleton 2024 [address]25 [address] [facility], [address] [place] [address] [address], [place], [address], 5 16:07:57 XR, hip, unilateral, 2 or 3 view [email or web address] [place] [address], [facility] , [place], [address], 4 08:59:49 DEXA - *Please call pt to schedule* 2023 [email or web address] [place] [address] (Imaging), [address] [place] [address] [address], [place], [address], 4 08:56:49 US, doppler, venous - bilateral, upper and lower, looking for blockage *Please call pt to schedule* 2023 024 [email or web address] [address] [facility], [address], [place], [address], 4 08:56:50 US, doppler, arterial - looking for atheroscler osis, bilateral *Please call pt to schedule* 2023 024 [email or web address] 256 [facility], [address], [place], [address], 4 08:56:50 MAMMO, screening, bilateral 2022 023 [email or web address] 256 [facility], [address] [place] [address], [place], [address], 3 09:03:37 Medication Orders ropinirole 1 mg tablet 2024 025 [facility]acy #3259, [address] [place], [address], 5 14:14:18 ropinirole 0.25 mg tablet 2023 024 [facility] #3259, [address] [place], [address], 4 12:25:15 zolpidem 10 mg tablet 2023 024 [facility] #3259, [address] [place], [address], 4 12:16:14 ropinirole 0.25 mg tablet 2023 024 [facility] #3259, [address] [place], [address], 4 12:47:08 fluoxetine 20 mg capsule 2023 024 [facility] #3259, [address] [place], [address], 4 12:40:16 terbinafine HCl 250 mg tablet 2022 023 [email or web address] [facility] #3259, [address] [place], [address], 4 12:24:43 fluoxetine 40 mg capsule 2022 023 [facility] #3259, [address] [place], [address], 5 13:48:07 Patient TargetsNo targets recorded. Patient Instructions Encounter Date Encounter Id Patient Instructions Last Modified By Organization Details Last Modified Time 12/10/2023 [id number] wear compression stockings [email or web address] Not available 12/10/2023 14:18:53 07/16/2024 [id number] She said she rachel l consider going to ortho for her hip after the holidays . I encouraged her to get the x-ray of hip rohit , not to wait . [email or web address] Not available 08/10/2024 16:09:53 10/29/2024 [id number] dementia rating scale-2* IVAN Not available 10/29/2024 14:55:30 multi-dimensiona l health assessment questionnaire* IVAN Not available 10/29/2024 14:55:22 advance directiv es: care instructions Not available 10/29/2024 14:25:53 [place] Advance Directives [email or web address] Not available 10/29/2024 14:25:53 advance care planning: care instructions [email or web address] Not available 10/29/2024 14:25:53 care plan* IVAN [...] Screening: Active diagnosis, Continue current treatment plan [email or web address] Not available 10/29/2024 13:34:10 buy otc Black Cohosh and soy tablets . google dose [email or web address] Not available 11/01/2024 11:31:37 Reason for Referral [...] ----- HIGH RISK: >240 >200 Not Available [facility] (Lab) [address] [place], [address], 04/06/2023 19:31:01 04/06/2004/06/2023 LIPID PANEL triglyceride s 101 mg/dL 0-150 [facility] ADONIS NSUS REPOR T RECOM MENDA TION FOR TRIGL YCERI MICAELA: ADULT CHILD LOW RISK: <150 ----- BODER LINE: 150-1 99 ----- HIGH RISK: >200 ----- Not Available [facility] (Lab) [address] [place], [address], 04/06/2023 19:31:01 04/06/20 23 04/06/2023 LIPID PANEL HDL cholesterol 61 mg/dL 40- Not Available [facility] (Lab) [address] [place], [address], 04/06/2023 19:31:01 04/06/20 23 04/06/2023 LIPID PANEL [...] WILL NOT BE REPOR MICHAEL. Not Available [facility] (Lab) [address] [place], [address], 04/06/2023 19:31:01 04/06/20 23 04/06/2023 COMP MET PANEL /LIVE R sodium 140 mmol/ L 137-14 5 Not Available [facility] (Lab) [address] [place], [address], 04/06/2023 19:31:06 04/06/2004/06/2023 COMP MET PANEL /LIVE R potassium 4.0 mmol/ L 3.5-5. 1 Not Available [facility] (Lab) [address] [place], [address], 04/06/2023 19:31:06 04/06/20 23 04/06/2023 COMP MET PANEL /LIVE R chloride 102 mmol/ L 98-107 Not Available [facility] (Lab) [address] [place], [address], 04/06/2023 19:31:06 04/06/20 23 04/06/2023 COMP MET PANEL /LIVE R carbon dioxide 29 mmol/ L 22-30 Not Available [facility] (Lab) [address] [place], [address], 04/06/2023 19:31:06 04/06/20 23 04/06/2023 COMP MET PANEL /LIVE R anion gap 13.0 mmol/ L 14-22 low Not Available [facility] (Lab) [address] [place], [address], 04/06/2023 19:31:06 04/06/20 23 04/06/2023 COMP MET PANEL /LIVE R glucose 115 mg/dL 70-99 high Not Available [facility] (Lab) [address] [place], [address], 04/06/2023 19:31:06 04/06/20 23 04/06/2023 COMP MET PANEL /LIVE R BUN 21 mg/dL 8-19 high Not Available [facility] (Lab) [address] [place], [address], 04/06/2023 19:31:06 04/06/20 23 04/06/2023 COMP MET PANEL /LIVE R creatinine 0.95 mg/dL 0.66-1 .25 Not Available [facility] (Lab) [address] [place], [address], 04/06/2023 19:31:06 04/06/20 23 04/06/2023 COMP MET PANEL /LIVE R GFR 59 Refer ence Range : Dundee ge GFR Healt hy Adult : >60 [...] calcu lator is avail able on the [facility] websi te: https ://ww w.kid ayesha.o rg/pr ofess ional s/kdo qi/gf r_cal culat or Not Available [facility] (Lab) [address] [place], [address], 04/06/2023 19:31:06 04/06/20 23 04/06/2023 COMP MET PANEL /LIVE R alkaline phosphatase 60 U/L 38-126 Not Available [facility] (Lab) [address] [place], [address], 04/06/2023 19:31:06 04/06/20 23 04/06/2023 COMP MET PANEL /LIVE R alanine aminotransfe rase 23 U/L 0-35 Not Available [facility] (Lab) [address] [place], [address], 04/06/2023 19:31:06 04/06/20 23 04/06/2023 COMP MET PANEL /LIVE R aspartate aminotransfe rase 26 U/L 15-37 Not Available [facility] (Lab) [address] [place], [address], 04/06/2023 19:31:06 04/06/20 23 04/06/2023 COMP MET PANEL /LIVE R bilirubin, total 0.30 mg/dL 0.20-1 .30 Not Available [facility] (Lab) [address] [facility] [place], [address], 04/06/2023 19:31:06 04/06/20 23 04/06/2023 COMP MET PANEL /LIVE R bilirubin, conjugated (direct) 0.00 mg/dL 0.00-0 .30 Not Available [facility] (Lab) [address] [place], [address], 04/06/2023 19:31:06 04/06/20 23 04/06/2023 COMP MET PANEL /LIVE R biliurubin,u ncong. (indirect) 0.20 mg/dL 0.00-1 .1 Not Available [facility] (Lab) [address] [place], [address], 04/06/2023 19:31:06 04/06/20 23 04/06/2023 COMP MET PANEL /LIVE R calcium 9.5 mg/dL 8.4-10 .2 Not Available [facility] (Lab) [address] [place], [address], 04/06/2023 19:31:06 04/06/20 23 04/06/2023 COMP MET PANEL /LIVE R total protein 7.2 g/dL 6.3-8. 2 Not Available [facility] (Lab) [address] [place], [address], 04/06/2023 19:31:06 04/06/20 23 04/06/2023 COMP MET PANEL /LIVE R albumin 4.2 g/dL 3.0-4. 4 Not Available [facility] (Lab) [address] [place], [address], 04/06/2023 19:31:06 04/06/20 23 04/06/2023 COMP MET PANEL /LIVE R globulin 3.0 g/dL 2.6-4. 2 Not Available [facility] (Lab) [address] [place], [address], 04/06/2023 19:31:06 04/06/20 23 04/06/2023 COMP MET PANEL /LIVE R A/G ratio 1.4 ratio 1.0-2. 0 Not Available [facility] (Lab) [address] [place], [address], 04/06/2023 19:31:06 04/06/20 23 04/06/2023 HEMOG LOBIN A1C HA1C 6.2 % 4.0-6. 0 high Diabe devon Chance david Crite jason: <5.7% Consi stent with absen ce of diabe devon 5.7-6 .4% Consi stent with incre ased risk for diabe devon (pred iabet es) >OR=6 .5% Consi stent with diabe devon REFER ENCE: Diabe devon Care 2016, 39(Lal ppl.1 ):s13 -s22 Not Available [facility] (Lab) [address] [place], [address], 04/06/2023 19:37:06 04/06/20 23 04/06/2023 TSH W/REF CELSO FT4 TSH with reflex free T4 0.939 uIU/m L 0.465- 4.680 Not Available [facility] (Lab) [address] [place], [address], 04/06/2023 19:59:17 10/29/19 25 10/29/2024 hemog lobin A1C, finge rstic k HgbA1C 6.4 Not Available [facility], [address], 10/29/2024 14:09:33 06/11/20 23 MAMMO , chance david, digit al, bilat eral [facility] [address] [facility] [place] [address] Patien t Name: MIGUEL CORBETT Sameer ion #: [id number] Sex: F : 1959 6 Dictat [...] at 2022 10:59: 05 AM Page 1 [email or web address] [facility] (Imaging) [address] [place], [address], 06/11/2023 13:55:53 06/11/20 23 06/11/2023 MAMMO , scree joann, bilat eral No observ ation record ed. [email or web address] [facility] [address] [place], [address], 06/11/2023 13:55:53 02/27/20 24 02/07/2024 US, doppl er, arter ial No observ ation record ed. [facility] [address], [place], [address], 02/28/2024 08:27:51 Result Notes Documentation Provider Name and Address Organization Details Recorded Time Mammo, Screening, Digital, Bilateral : [facility] [address] [place] [address] Patient Name: MIGUEL CORBETT Sex: F : 1960 [facility] [id number] Dictated By: Leonor Randall Attending Physician: YURY RESTREPO Ordering Physician: YURY RESTREPO Exam Date: 06/11/2023 09:56 AM Exam Name: STEPHANIE NILTON BILAT SCREEN Admitting Diagnosis(es): CLINICAL HISTORY: [...] - Negative Page 1 Suze Sanders [facility] [place] [facility] 06/11/2023 13:55:53 Problems Name Problem SNOMED Code Status Onset Date Resolution Date Notes Provider Name and Address Organization Details Recorded Time Fibromyalg ia 588933333 Active 2020 Not Available [facility] 3 23:49:01 Glaucoma 96463440 Active 2020 Not Available [facility] 3 23:49:01 Depressive disorder 13799115 Active 2020 Not Available [facility] 3 23:49:01 Hypertensi ve disorder 92651683 Active 2020 Not Available [facility] 3 23:49:01 Percutaneo division of Achilles tendon Active 2020 Not Available [facility] 3 23:49:01 Diabetes mellitus 20217629 Active 2020 Not Available [facility] 3 23:49:01 Thyroiditi s 78942701 Active 2020 Not Available [facility] 3 23:49:01 Anti-nucle ar factor detected 854952605 Active 2021 Not Available [facility] 3 23:49:00 Pain of multiple joints 40143441 Active 2021 Not Available [facility] 3 23:49:01 Pain of bilateral hands 785271013624 12815 Active 2021 Not Available [facility] 3 23:49:00 Hypothyroi dism 75135312 Active 2022 Not Available [facility] 3 23:49:01 Type 2 diabetes mellitus without complicati on 921526050 Active 2022 Not Available [facility] 3 23:49:01 Onychomyco sis of toenails 091391499 Active 2022 Not Available [facility] 3 23:49:01 Dizzy spells 976870361 Active 2023 VANDA Estevez [address], [place], [address] , [employer] [facility] [employer] 4 14:22:41 Screening for osteoporos is Active 2023 VANDA Estevez [address], [address], [place], [address] , [employer] 4 14:26:42 Aphthous ulcer of mouth 880070712 Active 2023 tongue VANDA Estveez [address], [address], [place], [address] , [employer] [facility] [employer] 4 21:19:49 Restless legs syndrome 67052925 Active 2023 VANDA Estevez [address], [place], [address] , [employer] 4 12:45:53 Adult health examinatio n Active 2023 VANDA Estevez [address], [place], [address] , [employer] [facility] [employer] 4 11:29:53 Hyperlipid emia 41529053 Active 2023 Suze Sanders RN null, [place] [address] [facility] [employer] [facility] 4 16:12:03 Fatigue 74591222 Active 2023 NICOLE Davis, [place] [address] [facility] [employer] 4 16:13:57 Pain of left hip joint 252296214206 100 Active 2023 VANDA Estevez [address], [address], [place], [address] , [employer] 4 12:21:11 Wheezing 95835210 Active 2024 VANDA Estevez [address], [place], [address] , [employer] 5 10:15:54 Screening mammograph y Active 2024 VANDA Estevez [address], [address], [place], [address] , [employer] 5 14:05:45 Osteoporos is 33688530 Active 2024 VANDA Estevez [address], [place], [address] , [employer] 5 14:21:11 Pain of right knee region 771064054929 105 Active 2024 NICOLE Davis, [place] [employer] [facility] [employer] 5 15:31:37 Problem Notes None recorded. Procedures Surgical History Date Name Laterality Status Provider Name and Address Organization Details Recorded Time 10/29/19 Medicare Wellness CPT Code, Initial completed Suze Sanders RN [facility] [employer] 10/29/2024 13:34:10 Cataract Surgery completed Not Available [facility] 11/08/2022 00:41:25 Cholecystectomy completed Not Available [facility] 11/08/2022 00:41:25 Tonsillectomy completed Not Available [facility] 11/08/2022 00:41:25 Imaging Results None recorded. Procedure Notes None recorded. Medical Equipment None Reported. Allergies Allergen ID Allergen Name Allergen Category Reaction Reaction Severity Criticality Documentation Date Start Date Code Code System Note Provider Name and Address Organization Details Recorded Time 07394 Cymbalta medicatio n other Not available low 07/16/2024 07364 4 RxNorm NICOLE Crawford, [facility] [employer] [facility] 12:04:16 Medications Name Sig Start Date Stop [...] Updated DateTime 5 165.1 cm 42 kg/m2 247769 g 97.2 [degF] 97 % 97 % 55 /min 122/92 mm[Hg] Suze Sanders RN [facility] [employer] [facility] 5 13:47:37 Date Recorded Body height Body mass index (BMI) Body weight Body temperature Heart rate Oxygen saturation Oxygen saturation in Arterial blood by Pulse oximetry Respiratory rate Systolic And Diastolic Provider Name and Address Organization Details Last Updated DateTime 4 165.1 cm 43.4 kg/m2 863717. 61 g 97.2 [degF] 64 /min 97 % 97 % 16 /min 126/84 mm[Hg] Marjan Cook RN [facility] [employer] [facility] 4 14:09:03 Date Recorded Body height Body mass index (BMI) Body weight Body temperature Heart rate Oxygen saturation Oxygen saturation in Arterial blood by Pulse oximetry Systolic And Diastolic Provider Name and Address Organization Details Last Updated DateTime 3 165.1 cm 44.4 kg/m2 834178. 16 g 96.6 [degF] 98 /min 98 % 98 % 138/100 mm[Hg] SHAR Mills [facility] [employer] [facility] 3 11:14:33 Date Recorded Body height Body mass index (BMI) Body weight Body temperature Heart rate Respiratory rate Oxygen saturation Oxygen saturation in Arterial blood by Pulse oximetry Systolic And Diastolic Provider Name and Address Organization Details Last Updated DateTime 4 165.1 cm 44.1 kg/m2 940349. 98 g 96.9 [degF] 59 /min 16 /min 97 % 97 % 146/90 mm[Hg] Regine Yepez RN [facility] [employer] [facility] 4 12:29:00 Date Recorded Body height Body mass index (BMI) Body weight Body temperature Heart rate Oxygen saturation Oxygen saturation in Arterial blood by Pulse oximetry Systolic And Diastolic Provider Name and Address Organization Details Last Updated DateTime 4 165.1 cm 44.4 kg/m2 167360. 16 g 97.5 [degF] 60 /min 97 % 97 % 134/80 mm[Hg] Regine Yepez RN [facility] [employer] [facility] 4 12:09:49 Social History Question Answer Notes LastModified by [employer] Details LastModified Time Tobacco Smoking Status Former Smoker Not Available [facility] 11/08/2022 00:41:01 In The 14 Days Before Symptom Onset, Have You Had Close Contact With A Laboratory-confirm ed COVID-19 While That Case Was Ill? No [id number] Information not available 11/08/2022 In The 14 Days Before Symptom Onset, Have You Had Close Contact With A Person Who Is Under Investigation For COVID-19 While That Person Was Ill? No [id number] Information not available 11/08/2022 What Was The Date Of Your Most Recent Tobacco Screening? 04/04/2022 [id number] Information not available 11/08/2022 At What Age Did You Start Smoking Tobacco? 18 [id number] Information not available 11/08/2022 How Much Tobacco Do You Smoke? 1 PPD [id number] Information not available 11/08/2022 How Many Years Have You Smoked Tobacco? 12 Quite 1990 MIGRATION.[id number] Information not available 11/08/2022 Sex: Unknown Functional Status Question Answer Note LastModified by [employer] Details LastModified Time What is your level of alcohol consumption? Occasional [id number] Information not available 11/08/2022 Mental Status None recorded. Family History Relationship Description Onset Age of this Age Resolved Age Notes LastModified by Organization Details LastModified Time Father Diabetes mellitus [id number] [id number] Not available 11/08/2022 00:41:30 Father Hypertensive disorder MIGRATION.698 [id number] Not available 11/08/2022 00:41:30 Father Family history of stroke MIGRATION.720 [id number] Not available 11/08/2022 00:41:30 Paternal Grandfather Diabetes mellitus MIGRATION.296 [id number] Not available 11/08/2022 00:41:31 Paternal Grandfather Family history of malignant neoplasm MIGRATION.601 [id number] Not available 11/08/2022 00:41:31 Mother Polycystic ovary syndrome MIGRATION.893 [id number] Not available 11/08/2022 00:41:31 Mother Glaucoma MIGRATION.818 [id number] Not available 11/08/2022 00:41:31 Mother Kidney disease MIGRATION.839 [id number] Not available 11/08/2022 00:41:31 Maternal Grandmother Glaucoma MIGRATION.959 [id number] Not available 11/08/2022 00:41:31 Paternal Aunt Family history of malignant neoplasm MIGRATION.436 [id number] Not available 11/08/2022 00:41:31 Paternal Uncle Family history of malignant neoplasm MIGRATION.166 [id number] Not available 11/08/2022 00:41:31 Sister Bipolar disorder MIGRATION.975 [id number] Not available 11/08/2022 00:41:31 Medical History Condition [...] HAVE YOU BEEN HOSPITALIZED OR SEEN IN [facility] ER IN THE PAST YEAR ? N ATHEROSCLEROSIS [...] Diagnosis SNOMED-CT Code Diagnosis ICD10 Code Diagnosis IMO Codes Diagnosis Note [id number] Yury Plaza MD [facility] Marilyn messina [facility] [place] [address] 11/11/2020 00:00:00 11/11/2020 20:16:49 [id number] Yury Plaza MD [facility] Marilyn [place]ita [facility] [place] [address] 02/22/2021 00:00:00 02/22/2021 21:11:21 [id number] Yury Plaza MD [facility] Marilyn [address] [place] [address] 05/25/2021 00:00:00 05/25/2021 20:57:50 [id number] Yury Plaza MD [facility] Marilyn messina [facility] [place] [address] 03/21/2022 00:00:00 03/21/2022 21:22:36 [id number] Yury Plaza MD [facility] [place] [address] [place] [address] y , [place] [address] 03/27/2022 00:00:00 03/27/2022 19:04:29 [id number] Ric Ríos MD [facility] [place] [address] [facility] [address] [place] [address] 04/04/2022 00:00:00 04/04/2022 11:28:01 [id number] Yury Plaza MD [facility] [place] [address] [place] [address] y , [place] [address] 04/07/2022 00:00:00 04/07/2022 12:18:03 [id number] Yury Plaza MD [facility] [place] [facility] [place] [address] 07/07/2022 00:00:00 07/08/2022 11:59:42 [id number] Yury Plaza MD [facility] [place] [address] [place] [address] [place] [address] 11/01/2022 00:00:00 11/01/2022 13:30:35 [id number] Yury Plaza MD [facility] [place] [address] [place] [address] [place] [address] 04/06/2023 10:53:12 04/06/2023 11:42:39 Adult health examination 674042323 Z00.00 Hyperlipid emia screening 010603814 Z13.220 Hypothyroidism 36712718 E03.9 Screening for malignant neoplasm of breast 257079512 Z12.39 Type 2 allan betes mellitus without complication 585186569 E11.9 Depressive disorder 3548 9007 F32.A Chronic low back pain 27 8382106 M54.50 Onychomyco sis of toenails 999605452 B35.1 [id number] Yury Plaza MD [place] [address] [place] [address] 12/10/2023 14:01:36 12/10/2023 15:23:09 Type 2 diabetes mellitus without complication 794559073 E11.9 Hypothyroidism 97814718 E03.9 Hypertensive disorder 38 613861 I10 Dizzy spells 003531501 R 42 Screening for osteoporosis 539887280 Z13.820 Depressive disorder 3548 9007 F32.A Fibromyalgia 905505317 M 79.7 Glaucoma 93761890 H40.9 Aphthous u lcer of mouth 914667429 K12.0 [id number] Augusto Solano MD [address] [place] [address] 04/07/2024 11:56:17 04/07/2024 12:52:39 Depressive disorder 59625853 F32.A Type 2 allan betes mellitus without complication 827120372 E11.9 Restless l egs syndrome 94825627 G25.81 Adult heal th examination 484981281 Z00.00 Anti-nucle ar factor detected 008147219 R76.8 Fibromyalgia 453485704 M 79.7 Glaucoma 18239401 H40.9 Hypertensive disorder 38 109698 I10 Hypothyroidism 75952412 E03.9 Pain of mu ltiple joints 94104331 M25.50 Pain of bi lateral hands 8970214543 7466011 M79.641 M79.305 [id number] Augusto Solano MD [place] [address] [place] [address] 07/16/2024 11:56:44 07/16/2024 12:32:04 Persistent insomnia 301752700 G47.09 Pain of le ft hip joint 6377760286 14686 M25.552 Restless l egs syndrome 82776792 G25.81 Depressive disorder 3548 9007 F32.A Fatigue 48190831 R53.83 Fibromyalgia 562746663 M 79.7 Glaucoma 58334268 H40.9 Hyperlipidemia 15468390 E78.5 Hypertensive disorder 38 592514 I10 Hypothyroidism 02961570 E03.9 Pain of mu ltiple joints 93891497 M25.50 Onychomyco sis of toenails 365179291 B35.1 Type 2 allan betes mellitus without complication 821128426 E11.9 a1c was 6.4 in june 2024 [id number] Augusto Solano MD [facility] [address] [address] 10/29/2024 13:26:21 10/29/2024 14:35:37 Adult health examination 542096539 Z00.00 Screening for disorder 414937508 Z13.9 Screening mammography 24 186516 Z12.31 Type 2 allan betes mellitus without complication [id number] E11.9 a1c was 6.4 in june 2024 Restless l egs syndrome [id number] G25.81 Osteoporosis [id number] M8 1.0 Health Concerns Section Related Observation LastModified by Organization Detai ls LastModified Time None Recorded Concern Status LastModified by Organization Details LastModified Time None Recorded Advance Directives Directive None Recorded Payers Insurance Date Sequence Insurance Name Policy Number Policy Garcia Covered Member ID Garcia Member ID Guarantor Name 10/29/2024 1 [place] Miguel Corbett [id number] Miguel Corbett 10/29/2024 1 [employer] (POS II) [id number] Miguel Corbett [id number] Miguel Corbett Notes Date Note Type [...] is needing A1C check. Yury Plaza MD [address] [facility], [facility] [address], [place], [address], [facility] [employer] 04/07/2023 02:19:36 12/10/2023 text/html ROS as noted in the HPI sweats all the time VANDA Estevez [address], [place], [address], [facility] [employer] 12/18/2023 21:20:25 04/07/2024 text/html ROS as noted in the HPI willing to go down on number of tabs of tramadol , but may need a refill this time 3 days early, recent fall VANDA Estevez [address], [place], [address], [employer] [facility] [employer] [facility] 04/09/2024 11:31:46 07/16/2024 text/html ROS as noted in the HPI no changes , still limping , she wants to wait till after the holidays to do any testing or referrals. VANDA Estevez [address], [place], [address], [employer] [facility] [employer] 08/10/2024 16:10:02 10/29/2024 text/html ROS as noted in the HPI see chief complaint . does not want to get blood drawn for mmr titer. VANDA Estevez [address], [place], [address], [facility] [employer] [facility] 11/01/2024 11:31:57 OBGyn Episode No OBEpisode recorded.
--- OUTSIDE RECORDS SUMMARY | 2025-07-16 18:23 | XMS_ITS | Clinical Summary ---
Author Organization [facility] Address [address] [place] [id number] Care Team Providers Care Commodities Requirements Analyst Name Role Phone Unavailable Primary Care Provider [...] 2009 Zoster Vaccines (1 of 2) 2009 Dexa Scan (General) 2024 PHQ-2 (Physician [place]) 09/10/2024 COVID-19 Vaccine (1 - 2024-2 6 season) 2025 Influenza Adult (#1) 2025 RSV Immunization or 60+ Years (1 - 1-dose 75+ series) 2034 Hepatitis A Vaccines Aged Out No long er eligible based on patient's age to complete this topic Meningococcal B Vaccine Aged Out No l onger eligible based on patient's age to complete this topic Meningococcal Vaccine Aged Out No trey chiara eligible based on patient's age to complete this topic RSV Immunizations Under 20 Months Aged Out No longer eligible based on patient's age to complete this topic Insurance AETNA
--- OUTSIDE RECORDS SUMMARY | 2025-07-16 18:23 | XMS_ITS | Clinical Summary ---
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
--- OUTSIDE RECORDS SUMMARY | 2025-07-16 18:23 | XMS_ITS | Clinical Summary ---
Author Organization [facility] Address [address] [facility] [place] [address] Care Team Providers Care Refuse Collector Supervisor Name Role Phone Víctor Garcia MD Primary Care Provider [phone] Source Comments [facility],non-owned Affiliates and Associated Physician Practices is amultiple site organization consisting of ambulatory clinics and hospital sitesin [place], [place], [place] and [place]. This disclosure is being madepursuant to the Care Everywhere program and may not contain all information available regarding this patient. 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
== END 2025-07-16 10:04 | disposition home or self-care (01) ==
PROVIDERS: PCP Family Medicine; Visit Provider Family Medicine
DX: E78.2 Mixed hyperlipidemia (principal); Z79.899 Other long term (current) drug therapy; E66.01 Morbid (severe) obesity due to excess calories; R73.03 Prediabetes; E03.9 Hypothyroidism, unspecified; R94.6 Abnormal results of thyroid function studies
CPT/HCPCS: 36415; 80053; 80061; 83036; 84439; 84443; 85027